=== PATIENT | female | born 1990 | race African-American/Black ===

== ENCOUNTER 2017-06-22 13:28 | Emergency (ER) | payer OTHER ==
[~2017-06-22] VITALS: Ht 165.1 cm; Wt 81.7 kg
[2017-06-22] MEDS ORDERED: OSELB75 PO (15:58)
== END 2017-06-22 16:05 | disposition home or self-care (01) ==
LOC: ER 13:28
DX: J02.9 Acute pharyngitis, unspecified (principal)

== ENCOUNTER 2018-09-07 20:27 | Emergency (ER) | payer OTHER ==
[~2018-09-07] VITALS: Ht 165.1 cm; Wt 68.0 kg
[~2018-09-07 20:27] MED LIST: OSELB75 PO
[2018-09-07] MEDS ORDERED: VENTOLIN HFA 1818 GM INH (20:30)
[2018-09-07 20:46] LABS: URINE BILIRUBIN NEGATIVE (Negative); URINE BLOOD NEGATIVE (Negative); URINE CLARITY CLEAR; URINE COLOR YELLOW; URINE GLUCOSE-RANDOM* NEGATIVE (Negative); URINE KETONES TRACE (Negative); URINE LEUKOCYTES-REFLEX NEGATIVE (Negative); URINE NITRITE-REFLEX NEGATIVE (Negative); URINE PROTEIN (DIPSTICK) NEGATIVE (Negative); URINE SPECIFIC GRAVITY >= 1.030 (1.005-1.035); URINE UROBILINOGEN 0.2 E.U./dl (0.2-1.0)
[2018-09-07] MEDS ORDERED: KEFLEX500 M1 PO (22:10)
[2018-09-07 22:57] VITALS: BP 103/72
== END 2018-09-07 23:00 | disposition home or self-care (01) ==
LOC: ER 20:27
PROVIDERS: Emergency Medicine
DX: R30.0 Dysuria (principal); R10.2 Pelvic and perineal pain; R35.0 Frequency of micturition; J45.909 Unspecified asthma, uncomplicated

== ENCOUNTER 2021-01-14 12:57 | Emergency (ER) | payer OTHER ==
[~2021-01-14] VITALS: Ht 170.2 cm; Wt 72.1 kg
[~2021-01-14 12:57] MED LIST changes: +KEFLEX500 M1 PO; +VENTOLIN HFA 1818 GM INH
[2021-01-14 13:07] VITALS: BP 112/67
[2021-01-14 14:19] LABS: URINE BILIRUBIN NEGATIVE (Negative); URINE BLOOD NEGATIVE (Negative); URINE CLARITY SL CLOUDY; URINE COLOR YELLOW; URINE GLUCOSE-RANDOM* NEGATIVE (Negative); URINE KETONES NEGATIVE (Negative); URINE LEUKOCYTES-REFLEX NEGATIVE (Negative); URINE NITRITE-REFLEX NEGATIVE (Negative); URINE PROTEIN (DIPSTICK) NEGATIVE (Negative)
== END 2021-01-14 15:21 | disposition home or self-care (01) ==
LOC: ER 12:57
PROVIDERS: Nurse Practitioner
DX: O9A.211 Injury, poisoning and certain other consequences of external causes complicating pregnancy, first trimester (principal); O03.9 Complete or unspecified spontaneous abortion without complication; Z3A.08 8 weeks gestation of pregnancy; V49.40XA Driver injured in collision with unspecified motor vehicles in traffic accident, initial encounter; Y93.89 Activity, other specified; Y92.89 Other specified places as the place of occurrence of the external cause; Y99.8 Other external cause status